=== PATIENT | female | born 1990 | race Caucasian/White ===

== ENCOUNTER 2017-10-10 09:16 | Emergency (ER) | payer MEDICAID ==
[~2017-10-10] VITALS: Ht 157.5 cm; Wt 60.0 kg
[2017-10-10] MEDS ORDERED: ZITHROMAX250 MG PO (10:20)
[2017-10-10] MEDS ORDERED: PREDNISONE50 MG PO (10:20)
[2017-10-10 10:30] VITALS: BP 129/74
== END 2017-10-10 10:30 | disposition home or self-care (01) | DRG 203 ==
LOC: ED 09:16 → EDBD 10:00 → ED 10:00
DX: J45.909 Unspecified asthma, uncomplicated (principal); F17.210 Nicotine dependence, cigarettes, uncomplicated